=== PATIENT | female | born 1975 | race Caucasian/White ===

== ENCOUNTER 2019-02-18 21:25 | Emergency (ER) | payer BC ==
[2019-02-18] MEDS ORDERED: GLUCAGON,HUMAN RECOMB 1 MG INJ IM ONE (22:57)
--- NOTE | 2019-02-18 22:58 | ER Document Report ---
ED Medical Screen (RME) - General Chief Complaint: Swallowed Foreign Body Stated Complaint: FORIEGN OBJECT STUCK IN THROAT Time Seen by Provider: 02/18/19 22:55 Primary Care Provider: AGMAL LATIF MD [Primary Care Provider] - Follow up as needed Notes: 43-year-old healthy female presents with an esophageal foreign body. Patient states she swallowed a piece of steak at 7:30 PM and it is stuck. She is having difficulty swallowing her secretions and she says they collect when she tries to swallow and ultimately has to spit everything up. Airway is intact and there is no respiratory distress. Lungs are clear to auscultation in all craven, no acute distress I have greeted and performed a rapid initial assessment of this patient. A comprehensive ED assessment and evaluation of the patient, analysis of test results and completion of medical decision making process will be conducted by an additional ED providers. - Related Data Allergies/Adverse Reactions: No Known Allergies Allergy (Verified 02/18/19 22:51) Physical Exam - Vital signs Vitals: Temp Pulse Resp BP Pulse Ox 97.9 F 89 20 122/71 99 02/18/19 22:05 02/18/19 22:05 02/18/19 22:05 02/18/19 22:05 02/18/19 22:05 Course - Vital Signs Vital signs: Temp Pulse Resp BP Pulse Ox 97.9 F 89 20 122/71 99 02/18/19 22:05 02/18/19 22:05 02/18/19 22:05 02/18/19 22:05 02/18/19 22:05 Doctor's Discharge - Discharge Referrals: GAMAL LATIF MD [Primary Care Provider] - Follow up as needed
--- NOTE | 2019-02-18 23:21 | RADIOLOGY REPORT (SQ) ---
EXAM DESCRIPTION: Chest x-ray two views Completed dated time 02/18/2019 11:08 PM CLINICAL HISTORY: 43 years Female Esophageal foreign body COMPARISON: None. FINDINGS: The cardiomediastinal silhouette appears unremarkable. No consolidating infiltrates or pleural effusions. No pneumothorax. A definite foreign object is not identified. Consider further evaluation with CT. IMPRESSION: Definite foreign object is not identified. Recommend further evaluation with CT
--- NOTE | 2019-02-18 23:48 | ER Document Report ---
ED General - General Chief Complaint: Difficulty Swallowing Stated Complaint: FORIEGN OBJECT STUCK IN THROAT Time Seen by Provider: 02/18/19 22:55 Primary Care Provider: GAMAL LATIF MD [NO LOCAL MD] - Follow up as needed TRAVEL OUTSIDE OF THE [place] IN LAST 30 DAYS: No - HPI Notes: This is a 43-year-old female who presents today with a complaint of an esophageal food bolus. Patient states that she was enjoying her [place] dinner when she had a piece of steak stuck in her throat. This occurred around 730. She has had difficulty maintaining her secretions. Patient states she had a similar episode in October at a restaurant and she was able to vomit it out at that time. Today, she was at home. Unfortunately, this time she is not been able to do that. She describes her symptoms as moderate. - Related Data Allergies/Adverse Reactions: No Known Allergies Allergy (Verified 02/18/19 22:51) Home Medications: trazadone 50 mg at hs. lexapro 20 mg qday. wellbutrin 450 mg qday. vyvanse qday Past Medical History - Social History Smoking Status: Never Smoker Family History: Reviewed & Not Pertinent Patient has suicidal ideation: No Patient has homicidal ideation: No Review of Systems - Review of Systems EENT: Other - Esophageal foreign body sensation. Cardiovascular: denies: Chest pain Gastrointestinal: denies: Abdominal pain -: Yes All other systems reviewed and negative Physical Exam - Vital signs Vitals: Temp Pulse Resp BP Pulse Ox 97.9 F 89 20 122/71 99 02/18/19 22:05 02/18/19 22:05 02/18/19 22:05 02/18/19 22:05 02/18/19 22:05 - General General appearance: Appears well, Alert - HEENT Notes: Patient having trouble maintaining his secretions, spitting. - Respiratory Respiratory status: No respiratory distress Chest status: Nontender Breath sounds: Normal Chest palpation: Normal - Cardiovascular Rhythm: Regular Heart sounds: Normal auscultation Murmur: No - Abdominal Inspection: Normal Distension: No distension Bowel sounds: Normal Tenderness: Nontender Organomegaly: No organomegaly - Neurological Orientation: AAOx4 [place] Coma Scale Verbal: Oriented [place] Coma Scale Motor: Obeys Commands Speech: Normal - Nonfocal neurologic exam. - Skin Skin Temperature: Warm Skin Moisture: Dry Skin Color: Normal Course - Re-evaluation Re-evalutation: 02/18/19 23:47 Clinical picture suggests esophageal foreign body. Patient's care discussed with Dr. Nicholas. Will see patient. He recommended to try water. We Tried water. Patient still feels foreign body sensation. 02/19/19 00:06 Patient reevaluated. Patient feels food bolus is gone. She swallowed it. She is able to drink water without any problems. She feels fine now. She is stable for discharge. - Vital Signs Vital signs: Temp Pulse Resp BP Pulse Ox 98.1 F 82 16 118/67 97 02/18/19 23:59 02/18/19 23:59 02/18/19 23:59 02/18/19 23:59 02/18/19 23:59 Discharge - Discharge Clinical Impression: Esophageal foreign body Qualifiers: Encounter type: initial encounter Qualified Code(s): T18.108A - Unspecified foreign body in esophagus causing other injury, initial encounter Condition: Good Disposition: HOME, SELF-CARE Instructions: Esophageal Food Impaction ([facility]) Additional Instructions: Follow-up with your doctor. You may need referral to gastroenteroligist for further evaluation. Referrals: GAMAL LATIF MD [NO LOCAL MD] - Follow up as needed
[2019-02-19 00:06] VITALS: BP 118/67
== END 2019-02-19 00:10 | disposition home or self-care (01) ==
LOC: ER 21:25
DX: T18.128A Food in esophagus causing other injury, initial encounter (principal); X58.XXXA Exposure to other specified factors, initial encounter; Y93.89 Activity, other specified; Z79.899 Other long term (current) drug therapy
CPT/HCPCS: 99283; 96372; 71046; J1610